=== PATIENT | female | born 1995 | race American Indian/Alaskan Native ===

== ENCOUNTER 2016-05-15 11:53 | Emergency (ER) | payer SELFPAY ==
[2016-05-15 12:08] VITALS: BP 144/87
--- NOTE | 2016-05-15 16:44 | Emergency Department Report ---
ED N/V/D HPI - General Chief complaint: Nausea/Vomiting/Diarrhea Stated complaint: N/V COUGHING Time Seen by Provider: 05/15/16 16:40 Source: patient Mode of arrival: Ambulatory Limitations: No Limitations - History of Present Illness Initial comments: Patient reports nasal congestion and a dry cough that started yesterday. She also reports 2 episodes of vomiting this morning, however has resolved. LMP 04/16 MD complaint: nausea, vomiting, other (URI) Onset/Timin -: days(s) Description of Vomiting: watery Description of Diarrhea: other (NONE) Associated Abdominal Pain: No Radiation: none Severity: mild Pain Scale: 3 Quality: dull Consistency: constant Improves with: none Worsens with: eating, other (coughing) Context: other (unknown) Associated Symptoms: cough, nausea/vomiting. denies: myalgias, chest pain, diaphoresis, fever/chills, headaches, loss of appetite, malaise, rash, dysuria, shortness of breath, syncope, weakness - Related Data Previous Rx's Medication Instructions Recorded Last Taken Type Benzonatate [Tessalon Perles] 100 mg PO Q8HR #12 capsule 05/15/16 Unknown Rx Cetirizine HCl [ZyrTEC] 10 mg PO DAILY #30 capsule 05/15/16 Unknown Rx Allergies Allergy/AdvReac Type Severity Reaction Status Date / Time No Known Allergies Allergy Verified 05/15/16 12:10 ED Review of Systems ROS: Stated complaint: N/V COUGHING Other details as noted in HPI Constitutional: denies: chills, diaphoresis, fever, malaise, weakness Eyes: denies: eye pain, eye discharge, vision change ENT: congestion (nasal). denies: ear pain, throat pain, dental pain, hearing loss, epistaxis Respiratory: cough (nonproductive). denies: orthopnea, shortness of breath, SOB with exertion, SOB at rest, stridor, wheezing Cardiovascular: denies: chest pain, palpitations, dyspnea on exertion, orthopnea , edema, syncope, paroxysmal nocturnal dyspnea Gastrointestinal: nausea, vomiting. denies: abdominal pain, diarrhea, constipation Genitourinary: denies: urgency, dysuria, frequency, hematuria, discharge, abnormal menses, dyspareunia Musculoskeletal: denies: back pain, joint swelling, arthralgia, myalgia Skin: denies: rash, lesions, change in color, change in hair/nails, pruritus Neurological: denies: headache, weakness, numbness, paresthesias, confusion, abnormal gait, vertigo Hematological/Lymphatic: denies: easy bleeding, easy bruising, swollen glands ED Past Medical Hx - Past Medical History Previous Medical History?: No - Surgical History Past Surgical History?: No - Social History Smoking Status: Never Smoker Substance Use Type: Alcohol - Medications Home Medications: Home Medications Medication Instructions Recorded Confirmed Last Taken Type Benzonatate [Tessalon Perles] 100 mg PO Q8HR #12 capsule 05/15/16 Unknown Rx Cetirizine HCl [ZyrTEC] 10 mg PO DAILY #30 capsule 05/15/16 Unknown Rx ED Physical Exam - General Limitations: No Limitations General appearance: alert, in no apparent distress - Head Head exam: Present: atraumatic, normocephalic, normal inspection - Eye Eye exam: Present: normal appearance, PERRL, EOMI Pupils: Present: normal accommodation - ENT ENT exam: Present: normal orophraynx, mucous membranes moist, TM's normal bilaterally, normal external ear exam, other (swelling to nasal turbinates with watery drainage and nasal passages). Absent: mucous membranes dry - Expanded ENT Exam Expanded Ear exam: Present: normal external inspection. Absent: auricular hematoma, auricular trauma Mouth exam: Present: normal external inspection, tongue normal. Absent: drooling, trismus, muffled voice, tongue elevation, laceration Teeth exam: Present: normal inspection Throat exam: Positive: normal inspection. Negative: tonsillar erythema, tonsillomegaly, tonsillar exudate, R peritonsillar mass, L peritonsillar mass - Neck Neck exam: Present: normal inspection, full ROM. Absent: tenderness, meningismus, lymphadenopathy, thyromegaly - Respiratory Respiratory exam: Present: normal lung sounds bilaterally. Absent: respiratory distress, wheezes, rales, rhonchi, stridor, chest wall tenderness, accessory muscle use, decreased breath sounds, prolonged expiratory - Cardiovascular Cardiovascular Exam: Present: regular rate, normal rhythm, normal heart sounds. Absent: systolic murmur, diastolic murmur, rubs, gallop, clicks, JVD, S3, S4 - GI/Abdominal GI/Abdominal exam: Present: soft, normal bowel sounds. Absent: distended, tenderness, guarding, rebound, rigid - Extremities Exam Extremities exam: Present: normal inspection, full ROM, normal capillary refill. Absent: tenderness, pedal edema, joint swelling, calf tenderness - Back Exam Back exam: Present: normal inspection. Absent: CVA tenderness (R), CVA tenderness (L) - Neurological Exam Neurological exam: Present: alert, oriented X3, CN II-XII intact, normal gait, reflexes normal. Absent: motor sensory deficit - Skin Skin exam: Present: warm, dry, intact, normal color. Absent: rash ED Course Vital Signs 05/15/16 12:05 Temperature 98.8 F Pulse Rate 99 H Respiratory 16 Rate Blood Pressure 144/87 O2 Sat by Pulse 100 Oximetry - Reevaluation(s) Reevaluation #1: 05/15/16 16:44 Laboratory studies ordered ED Medical Decision Making - Lab Data Vital Signs 05/15/16 12:05 Temperature 98.8 F Pulse Rate 99 H Respiratory 16 Rate Blood Pressure 144/87 O2 Sat by Pulse 100 Oximetry Lab Results 05/15/16 05/15/16 Range/Units 16:20 16:46 HCG, Quant < 2 (0-4) mIU/mL Urine Color Yellow (Yellow) Urine Turbidity Cloudy (Clear) Urine pH 6.0 (5.0-7.0) Ur Specific [place] 1.024 (1.003-1.030) Urine Protein <15 mg/dl (Negative) mg/dL Urine Glucose (UA) Neg (Negative) mg/dL Urine Ketones Tr (Negative) mg/dL Urine Blood Neg (Negative) Urine Nitrite Neg (Negative) Urine Bilirubin Neg (Negative) Urine Urobilinogen < 2.0 (<2.0) mg/dL Ur Leukocyte Esterase Neg (Negative) Urine WBC (Auto) 3.0 (0.0-6.0) /HPF Urine RBC (Auto) 6.0 (0.0-6.0) /HPF U Epithel Cells (Auto) 38.0 H (0-13.0) /HPF Urine Mucus 3+ /HPF - Medical Decision Making During the course of ED, laboratory studies and ice chips were ordered., Patient's laboratory studies were unremarkable and she tolerated ice chips without any symptoms are nausea or vomiting. She was sent home with prescription for Zyrtec and Tessacha Sue, instructed to drink plenty of fluids, follow up with selective referrals given at discharge, she verbalize understanding - Differential Diagnosis Upper Respiratory Infection, UTI, N/V Critical care attestation.: If time is entered above; I have spent that time in minutes in the direct care of this critically ill patient, excluding procedure time. ED Disposition Clinical Impression: Upper respiratory infection Qualifiers: URI type: unspecified viral URI Qualified Code(s): J06.9 - Acute upper respiratory infection, unspecified; B97.89 - Other viral agents as the cause of diseases classified elsewhere Nausea & vomiting Qualifiers: Vomiting type: unspecified Vomiting Intractability: non-intractable Qualified Code(s): R11.2 - Nausea with vomiting, unspecified Disposition: DISCHARGED TO HOME OR SELFCARE Is pt being admited?: No Does the pt Need Aspirin: No Condition: Stable Instructions: Upper Respiratory Infection (ED), Acute Nausea and Vomiting (ED) Additional Instructions: Take medication as directed. Drink plenty of fluids in order to maintain hydration. Follow up selective referral given at discharge. Return back to the ED for worsening symptoms or concerns Prescriptions: Benzonatate [Tessalon Perles] 100 mg PO Q8HR #12 capsule Cetirizine HCl [ZyrTEC] 10 mg PO DAILY #30 capsule Referrals: PRIMARY CARE, [Primary Care Provider] - 3-5 Days [facility] [Outside] - 3-5 Days Forms: Work/School Release Form(ED) Time of Disposition: 17:43
[2016-05-15 17:16] LABS: Bilirubin,Urine NEG (Negative); Blood,Urine NEG (Negative); Ketones,Urine TR mg/dL (Negative); Leukocyte Esterase,Urine NEG (Negative); Mucus,Urine 3+ /HPF; Nitrite,Urine NEG (Negative); Protein,Urine <15 mg/dL mg/dL (Negative); Urobilinogen,Urine < 2.0 mg/dL (<2.0)
== END 2016-05-15 17:46 | disposition home or self-care (01) ==
LOC: ED 11:53
DX: J06.9 Acute upper respiratory infection, unspecified (principal); B97.89 Other viral agents as the cause of diseases classified elsewhere; R11.2 Nausea with vomiting, unspecified
CPT/HCPCS: 36415; 81001; 84702; 99283

== ENCOUNTER → 2017-11-09 15:00 | Emergency (ER) | payer SELFPAY | END | disposition left against medical advice (07) | LOC: ED 15:00 | DX: A08.4 Viral intestinal infection, unspecified (principal); Z53.21 Procedure and treatment not carried out due to patient leaving prior to being seen by health care provider ==

== ENCOUNTER 2017-12-05 09:13 | Emergency (ER) | payer SELFPAY ==
[2017-12-05 09:38] VITALS: BP 138/89
[2017-12-05 10:12] LABS: Bilirubin,Urine NEG (Negative); Blood,Urine NEG (Negative); Color,Urine Yellow (Yellow); Mucus,Urine FEW /HPF; Protein,Urine <15 mg/dL mg/dL (Negative); Urobilinogen,Urine < 2.0 mg/dL (<2.0)
[2017-12-05 10:14] LABS: HCG Qualitative,Urine Negative (Negative)
--- NOTE | 2017-12-05 10:37 | Emergency Department Report ---
Vomiting/Diarrhea - HPI Chief Complaint: Nausea/Vomiting/Diarrhea Stated Complaint: STOMACH PAIN Time Seen by Provider: 12/05/17 10:25 Duration: 2 Days Severity: mild Nausea/Vomiting Severity: Mild Diarrhea Severity: None Pain Severity: None Symptoms: Yes Able to Tolerate Fluids, Yes Recent Unusual Foods (ate lunch at work yesterday), No Watery Diarrhea, No Bloody diarrhea, No Fever, No Recent Untreated Water, No Recent use of Antibiotics, No Family w/ Similar Symptoms, No Contacts w/ Similar Symptoms, No Rash, No Hematuria, No Recent URI Symptoms Other History: This is a 22 y.o. -Serbian female who presents with nausea and vomiting for 2 days. 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 Patient states her job sent her home and told to get clearance before returning to work. Patient's pain she had nausea and 4-5 episodes of vomiting. She did take something in her mother gave her unsure of name S tonight which improved symptoms. Patient states she does not believe she is . Last menstrual period was 11/30/2017. Denies abdominal pain, fever, burning sensation, dysuria, frequency, urgency, or chest pain. ED Review of Systems ROS: Stated complaint: STOMACH PAIN Other details as noted in HPI Constitutional: denies: chills, fever Respiratory: denies: cough, shortness of breath, wheezing Cardiovascular: denies: chest pain, palpitations Gastrointestinal: nausea, vomiting. denies: abdominal pain, diarrhea, constipation, hematemesis, melena, hematochezia Neurological: denies: headache, weakness, numbness, paresthesias Psychiatric: denies: anxiety, depression ED Past Medical Hx - Past Medical History Previous Medical History?: No - Surgical History Past Surgical History?: No - Social History Smoking Status: Never Smoker Substance Use Type: None - Medications Home Medications: Home Medications Medication Instructions Recorded Confirmed Last Taken Type Benzonatate [Tessalon Perles] 100 mg PO Q8HR #12 capsule 05/15/16 Unknown Rx Cetirizine HCl [ZyrTEC] 10 mg PO DAILY #30 capsule 05/15/16 Unknown Rx Ondansetron [Zofran Odt] 4 mg PO TID PRN #8 tab.rapdis 12/05/17 Unknown Rx Vomiting Diarrhea Exam - Exam General: Vital signs noted. No distress. Alert and acting appropriately. HEENT: Yes Moist Mucous Membranes, No Pharyngeal Erythema, No Pharyngeal Exudates, No Rhinorrhea, No Conjuctival Injection, No Frontal Tenderness, No Maxillary Tenderness Neck: No Adenopathy, No Rigidity Lungs: Yes Clear Lung Sounds, Yes Good Air Exchange, No Wheezes, No Stridor, No Cough, No Nasal Flaring, No Retractions, No Use of Accessory Muscles Heart exam: Regular: Yes, Murmur: No, Tachycardia: No Abdomen: Tenderness: No, Peritoneal Signs: No, Distention: No, Hyperactive Bowel sounds: No Skin exam: Rash: No, Edema: No, Normal turgor: Yes Neurologic: Alert and oriented, no deficits. Musculoskeletal: Unremarkable. ED Course Vital Signs 12/05/17 09:35 Temperature 98.2 F Pulse Rate 68 Respiratory 16 Rate Blood Pressure 138/89 O2 Sat by Pulse 100 Oximetry ED Medical Decision Making - Lab Data Result diagrams: 12/05/17 10:44 12/05/17 10:41 Lab Results 12/05/17 12/05/17 12/05/17 Range/Units 09:54 10:41 10:44 WBC 3.6 L (4.5-11.0) K/mm3 RBC 4.73 (3.65-5.03) M/mm3 Hgb 13.0 (10.1-14.3) gm/dl Hct 40.3 (30.3-42.9) % MCV 85 (79-97) fl MCH 28 (28-32) pg MCHC 32 (30-34) % RDW 14.5 (13.2-15.2) % Plt Count 376 (140-440) K/mm3 Sodium 141 (137-145) mmol/L Potassium 3.9 (3.6-5.0) mmol/L Chloride 104.2 (98-107) mmol/L Carbon Dioxide 23 (22-30) mmol/L Anion Gap 18 mmol/L BUN 12 (7-17) mg/dL Creatinine 0.5 L (0.7-1.2) mg/dL Estimated GFR > 60 ml/min BUN/Creatinine Ratio 24 % Glucose 92 (65-100) mg/dL Calcium 8.8 (8.4-10.2) mg/dL Urine Color Yellow (Yellow) Urine Turbidity Clear (Clear) Urine pH 5.0 (5.0-7.0) Ur Specific [place] 1.024 (1.003-1.030) Urine Protein <15 mg/dl (Negative) mg/dL Urine Glucose (UA) Neg (Negative) mg/dL Urine Ketones Neg (Negative) mg/dL Urine Blood Neg (Negative) Urine Nitrite Neg (Negative) Urine Bilirubin Neg (Negative) Urine Urobilinogen < 2.0 (<2.0) mg/dL Ur Leukocyte Esterase Tr (Negative) Urine WBC (Auto) 3.0 (0.0-6.0) /HPF Urine RBC (Auto) 1.0 (0.0-6.0) /HPF U Epithel Cells (Auto) 2.0 (0-13.0) /HPF Urine Mucus Few /HPF Urine HCG, Qual Negative (Negative) - Medical Decision Making This is a 22 y.o. female that presents with nausea and vomiting for 2 days. Patient is stable and was examined by me. Vitals normal. Obtained BMP, CBC, & UA. WBC's low, all unremarkable. No radiograph ordered. Patient report nausea has resolved. Plan to start zofran for gastritis. Discussed plan with patient and agreed to plan. No further questions noted by the patient. Discharged home in stable condition. Follow up with PCP in 2-3 days. Critical care attestation.: If time is entered above; I have spent that time in minutes in the direct care of this critically ill patient, excluding procedure time. ED Disposition Clinical Impression: Nausea and vomiting in adult, Gastroenteritis due to food toxin Disposition: DC-01 TO HOME OR SELFCARE Is pt being admited?: No Does the pt Need Aspirin: No Condition: Stable Instructions: Gastroenteritis (ED), Acute Nausea and Vomiting (ED) Additional Instructions: Frequent hand washing is important to reduce spread. Prompt disinfection of contaminated surfaces with household chlorine bleach- based physical aerodynamicist and washing of soiled clothing and bedding should be advised. If food or water is thought to be contaminated, it should be avoided. Increase fluid intake. Drinks high in sugars such as carbonated soft drinks, fruit juice, and highly sugared liquids should be avoided. Follow up with primary care provider in 2-3 days if symptoms are not improving. Prescriptions: Ondansetron [Zofran Odt] 4 mg PO TID PRN #8 tab.rapdis PRN Reason: Nausea And Vomiting Referrals: [facility] [Outside] - 3-5 Days [facility] [Outside] - 3-5 Days [facility] [Outside] - 3-5 Days Forms: Work/School Release Form(ED) Time of Disposition: 11:19 Print Language: GAMBIAN
[2017-12-05 10:58] LABS: Hematocrit 40.3 % (30.3-42.9); Mean Corpuscular HGB Conc 32 % (30-34); Mean Corpuscular Hemoglobin 28 pg (28-32); Mean Corpuscular Volume 85 fl (79-97); Platelet Count 376 K/mm3 (140-440); Red Blood Count 4.73 M/mm3 (3.65-5.03); Red Cell Distribution Width 14.5 % (13.2-15.2)
[2017-12-05 11:12] LABS: BUN/Creatinine Ratio 24; Blood Urea Nitrogen 12 mg/dL (7-17); Calcium 8.8 mg/dL (8.4-10.2); Hemolysis Index 8
== END 2017-12-05 11:25 | disposition home or self-care (01) ==
LOC: ED 09:13
DX: A05.9 Bacterial foodborne intoxication, unspecified (principal)
CPT/HCPCS: 36415; 80048; 81001; 81025; 85027; 99283

== ENCOUNTER 2019-04-01 09:20 | Emergency (ER) | payer SELFPAY ==
[2019-04-01 09:34] VITALS: BP 125/83
--- NOTE | 2019-04-01 10:25 | Emergency Department Report ---
Chief Complaint: Nausea/Vomiting/Diarrhea Stated Complaint: STOMACH VIRUS Time Seen by Provider: 04/01/19 09:57 - HPI History of Present Illness: 23-year-old -Indian female presents to the emergency room stating that she needs a work excuse to return to work. Patient states yesterday she had vomited 2 she feels that it is from the Thanksgiving food. She reports today she feels much better today. Patient denies abdominal pain, no nausea, no vomiting, no headache, no chest pain. Patient has no past medical history takes no medications on a daily basis and has no known drug allergies - Exam Vital Signs: Vital Signs 04/01/19 04/01/19 09:29 09:34 Temperature 98.7 F 98.7 F Pulse Rate 80 Respiratory 18 Rate Blood Pressure 125/83 O2 Sat by Pulse 100 Oximetry MSE screening note: Focused history and physical exam performed. Due to findings the following was ordered: 23-year-old -Indian female presents to the emergency room stating that she needs a work excuse to return to work. Patient states yesterday she had vomited 2 she feels that it is from the Thanksgiving food. She reports today she feels much better today. Patient denies abdominal pain, no nausea, no vomiting, no headache, no chest pain. Patient has no past medical history takes no medications on a daily basis and has no known drug allergies Patient will be MSE to follow-up for a doctor's excuse at her primary care provider or the primary clinic. Patient currently has no complaints and reports she feels much better. ED Disposition for MSE Condition: Stable
== END 2019-04-01 10:48 | disposition left against medical advice (07) ==
LOC: ED 09:20
DX: R11.10 Vomiting, unspecified (principal); Z53.21 Procedure and treatment not carried out due to patient leaving prior to being seen by health care provider